=== PATIENT | female | born 1980 | race Two or more races ===

== ENCOUNTER 2018-07-17 23:57 | Emergency (ER) | payer MEDICAID ==
[~2018-07-17] VITALS: Ht 154.9 cm; Wt 127.0 kg
[2018-07-18 00:13] VITALS: BP 146/96
[2018-07-18] MEDS ORDERED: LIDOCAINE 2%HCL (LOCAL ANESTH.) INJ 10ml MDV IJ ONE (01:15)
[2018-07-18] MEDS ORDERED: TETANUS-DIPTH-ACEL PERTUSSIS 0.5ML SYRG IM ONE (01:15)
[2018-07-18] MEDS ORDERED: cefTRIAXone SOD 1,000 MG VL IM ONE (01:15)
[2018-07-18] MEDS ORDERED: LIDOCAINE 2% (LOCAL ANESTH.) PF 5ml SDV ONE (01:31)
== END 2018-07-18 02:40 | disposition home or self-care (01) ==
LOC: ER 23:58
DX: S90.851A Superficial foreign body, right foot, initial encounter (principal); E66.9 Obesity, unspecified; Z68.43 Body mass index [BMI] 50.0-59.9, adult; Z23 Encounter for immunization; W22.8XXA Striking against or struck by other objects, initial encounter; Y93.89 Activity, other specified; Y92.092 Bedroom in other non-institutional residence as the place of occurrence of the external cause; Y99.8 Other external cause status
CPT/HCPCS: 73630; 90471; 90715; 96372; 99283; J0696; J2001

== ENCOUNTER → 2020-12-08 | Emergency (ER) | payer MEDICAID, OTHER ==
[~2020-12-08] VITALS: Ht 154.9 cm; Wt 117.9 kg
[~2020-12-08] MED LIST: KETOROLAC TROMETH 60MG/2ML VIAL IM ONE; ONDANSETRON ODT 4 MG TAB PO ONE
[2020-12-08 22:18] VITALS: BP 164/94
== END | disposition home or self-care (01) ==
LOC: ER 21:26
DX: R51.9 Headache, unspecified (principal); E66.9 Obesity, unspecified; I10 Essential (primary) hypertension; F17.210 Nicotine dependence, cigarettes, uncomplicated; Z68.42 Body mass index [BMI] 45.0-49.9, adult
CPT/HCPCS: 96372; 99283; J1885; Q0162

== ENCOUNTER 2021-07-15 14:16 | Emergency (ER) | payer MEDICAID ==
[~2021-07-15] VITALS: Ht 154.9 cm; Wt 115.7 kg
[2021-07-15] MEDS ORDERED: SODIUM CHLORIDE 0.9% 1,000 ML IV ONE ×2 (15:00→21:45)
[2021-07-15 15:56] LABS: Urine Bacteria NONE SEEN /hpf (None Seen); Urine Blood 3+ /uL (Negative); Urine Mucus FEW (None Seen); Urine Specific Gravity 1.035 (1.001-1.035); Urine WBC 26 /hpf (0 - 5)
[2021-07-15 16:23] LABS: Basophils # (auto) 0.1 10 ^3/uL (0-0.2); Eosinophils # (auto) 0.1 10 ^3/uL (0-0.8); Eosinophils % (auto) 0.5 % (0.0-7.0); Lymphocytes # (auto) 1.5 10 ^3/uL (0.4-5.4); Monocytes # (auto) 0.3 10 ^3/uL (0-1.3)
[2021-07-15 16:31] LABS: Basophils % (auto) 0.3 % (0.0-2.0); Hematocrit 47.2 % (36.0-46.0); Hemoglobin 16.2 g/dL (12.2-16.2); Lymphocytes % (auto) 8.6 % (10.0-50.0); Mean Corpuscular Hemoglobin 30.4 pg (28.0-32.0); Mean Corpuscular Hgb Conc. 34.4 g/dL (32.0-36.0); Mean Corpuscular Volume 88.4 fL (80.0-100.0); Monocytes % (auto) 1.6 % (0.0-12.0); Neutrophils # (auto) 15.3 10 ^3/uL (1.6-8.6); Nucleated Red Blood Cells % 0.3 %; Red Blood Cells 5.34 10^6/uL (4.0-5.20); Red Cell Distribution Width 13.4 % (11.8-14.3); White Blood Cell 17.2 10^3/uL (4.4-10.8)
[2021-07-15 16:50] LABS: Albumin 3.1 g/dL (3.4-5.0); BUN/Creatinine Ratio 12.2; Calcium 8.9 mg/dL (8.5-10.1); Potassium 5.5 mmol/L (3.5-5.1)
[2021-07-15 16:53] LABS: Bilirubin, Total 0.6 mg/dL (0.2-1.0); Total Protein 8.3 g/dL (6.4-8.2)
[2021-07-15] MEDS ORDERED: InsuLIN REG 1unit/0.01ml Soln (100units/ml) IV ONE (17:30)
[2021-07-15] MEDS ORDERED: ALBUTEROL SULF 2.5 MG/0.5ML(0.5%) NEB SOLN NEB ONE (17:30)
[2021-07-15] MEDS ORDERED: CALCIUM GLUC 1,000mg/50ml-NS 50 ML IV ONE (17:30)
[2021-07-15 22:12] LABS: Basophils # (auto) 0.1 10 ^3/uL (0-0.2); Basophils % (auto) 1.3 % (0.0-2.0); Eosinophils # (auto) 0 10 ^3/uL (0-0.8); Eosinophils % (auto) 0.1 % (0.0-7.0); Hematocrit 45.5 % (36.0-46.0); Hemoglobin 15.9 g/dL (12.2-16.2); Lymphocytes # (auto) 0.7 10 ^3/uL (0.4-5.4); Lymphocytes % (auto) 7.1 % (10.0-50.0); Mean Corpuscular Hemoglobin 30.5 pg (28.0-32.0); Mean Corpuscular Hgb Conc. 34.9 g/dL (32.0-36.0); Mean Corpuscular Volume 87.6 fL (80.0-100.0); Monocytes # (auto) 0.1 10 ^3/uL (0-1.3); Monocytes % (auto) 1.1 % (0.0-12.0); Neutrophils # (auto) 9.4 10 ^3/uL (1.6-8.6); Neutrophils % (auto) 90.4 % (37.0-80.0); Nucleated Red Blood Cells % 0.1 %; Red Cell Distribution Width 13.6 % (11.8-14.3); White Blood Cell 10.4 10^3/uL (4.4-10.8)
[2021-07-15 22:38] LABS: Albumin 3.2 g/dL (3.4-5.0); Calcium 9.2 mg/dL (8.5-10.1)
[2021-07-15 22:43] LABS: BUN/Creatinine Ratio 18.6; Bilirubin, Total 0.6 mg/dL (0.2-1.0); Total Protein 8.5 g/dL (6.4-8.2)
[2021-07-16 01:40] VITALS: BP 125/78
== END 2021-07-16 01:41 | disposition home or self-care (01) ==
LOC: ER 14:16
DX: E86.0 Dehydration (principal); R73.9 Hyperglycemia, unspecified; F17.210 Nicotine dependence, cigarettes, uncomplicated; I10 Essential (primary) hypertension; Z32.02 Encounter for pregnancy test, result negative
CPT/HCPCS: 36415; 71045; 80053; 81001; 81025; 82010; 84484; 85025; 87040; 94640; 96361; 96365; 96375; 99285; J0610; J1815; J7030